=== PATIENT | male | born 1970 | race Caucasian/White ===

== ENCOUNTER 2017-03-24 11:47 | Day surgery (SDC) | payer BC ==
[~2017-03-24] VITALS: Ht 170.2 cm; Wt 115.9 kg
[~2017-03-24 11:47] MED LIST: BENAZEPRIL HCL10 MG PO; EPIPEN ADU0.3 MG/0.3 IM; LOTENSIN10 MG PO; NAPROSYN500 MG PO; OMEPRAZOLE40 M1 PO; SUCRALFATE1 GM PO; TYLENOL REGULA325 MG PO
[2017-03-24 12:38] VITALS: BP 167/86
[2017-03-24] MEDS ORDERED: NORCO 5/3251 TABLET PO (15:54)
[2017-03-24] MEDS ORDERED: MOTRIN600 MG PO (15:54)
[2017-03-24 16:40] VITALS: BP 144/84
[2017-03-24 17:45] VITALS: BP 137/79
== END 2017-03-24 18:05 | disposition home or self-care (01) ==
LOC: SDC 11:47
PROC: 0DBQ0ZZ Excision of Anus, Open Approach (ICD-10-PCS; principal; 2017-03-24)
DX: K60.3 Anal fistula (principal); I10 Essential (primary) hypertension; K21.0 Gastro-esophageal reflux disease with esophagitis; G47.30 Sleep apnea, unspecified; E66.01 Morbid (severe) obesity due to excess calories; Z68.41 Body mass index [BMI] 40.0-44.9, adult
CPT/HCPCS: 88305; 93005; J0131; J0330; J0690; J1100; J2250; J2405; J3010; Q0175; S0020

== ENCOUNTER 2017-07-27 09:20 | Emergency (ER) | payer BC ==
[~2017-07-27] VITALS: Ht 170.2 cm; Wt 111.2 kg
[~2017-07-27 09:20] MED LIST changes: +MOTRIN600 MG PO; +NORCO 5/3251 TABLET PO
[2017-07-27 09:23] VITALS: BP 150/86
== END 2017-07-27 10:50 | disposition left against medical advice (07) ==
LOC: EME 09:20
DX: M25.511 Pain in right shoulder (principal); M25.512 Pain in left shoulder; Z53.21 Procedure and treatment not carried out due to patient leaving prior to being seen by health care provider